=== PATIENT | female | born 1975 | race Two or more races ===

== ENCOUNTER 2018-06-19 18:44 | Emergency (ER) | payer SELFPAY ==
[~2018-06-19] VITALS: Ht 170.2 cm; Wt 82.0 kg
[2018-06-19 20:29] VITALS: BP 174/82
== END 2018-06-19 23:00 | disposition left against medical advice (07) ==
LOC: ER 18:44
DX: R07.9 Chest pain, unspecified (principal); Z53.21 Procedure and treatment not carried out due to patient leaving prior to being seen by health care provider
CPT/HCPCS: 93005